=== PATIENT | male | born 1950 | race Caucasian/White ===

== ENCOUNTER → 2017-08-25 | Outpatient (CLI) | payer MEDICARE, OTHER | LOC: PT 07:54 | DX: Z01.818 Encounter for other preprocedural examination (principal); M25.562 Pain in left knee ==

== ENCOUNTER 2017-10-22 10:00 | Outpatient (RCR) | payer MEDICARE, OTHER | END 2017-10-22 10:30 | disposition home or self-care (01) | LOC: PT 10:00 | DX: Z47.89 Encounter for other orthopedic aftercare (principal) | CPT/HCPCS: G8978-GP; G8979-GP ==

== ENCOUNTER → 2019-09-08 | Outpatient (CLI) | payer MEDICARE, OTHER | LOC: RAD 07:10 | DX: M17.11 Unilateral primary osteoarthritis, right knee (principal) ==

== ENCOUNTER 2020-01-01 13:05 | Emergency (ER) | payer MEDICARE, OTHER ==
[2020-01-01] MEDS ORDERED: ULTRAM50 M1 PO (13:17)
[2020-01-01] MEDS ORDERED: SINGULAIR PO (13:18)
[2020-01-01] MEDS ORDERED: ATENOLOL25 MG PO (13:18)
[2020-01-01] MEDS ORDERED: NORCO 325 MG-7.1 TA1 PO (13:18)
[2020-01-01] MEDS ORDERED: CLARITIN LIQUI-10 MG PO (13:18)
[2020-01-01] MEDS ORDERED: PRAVASTATIN SOD80 MG PO (13:19)
[2020-01-01] MEDS ORDERED: MUCUS RELIEF600 MG PO (13:19)
[2020-01-01] MEDS ORDERED: IPRATROPIUM BROM3 M1 IH (13:20)
[2020-01-01] MEDS ORDERED: FLUTICASON0.05 MG/AC NS (13:20)
[2020-01-01] MEDS ORDERED: BUDESONIDE0.5 MG/2 M IH (13:20)
[2020-01-01 13:40] LABS: HEMATOCRIT 42.5 % (42.0-52.0); HEMOGLOBIN 14.2 g/dL (13.5-18.0); MEAN CELL VOLUME 91 fl (78-100); MEAN CORPUSCULAR HEMOGLOBIN 30 pg (27-31); MEAN CORPUSCULAR HGB CONC 33 g/dL (33-37); MEAN PLATELET VOLUME 8.8 fl (7.4-10.4); PLATELET COUNT 367 K/mm3 (130-400); RED BLOOD COUNT 4.68 M/mm3 (4.20-5.60); RED CELL DISTRIBUTION WIDTH 13.7 % (11.5-14.5); WHITE BLOOD COUNT 17.2 K/mm3 (4.8-10.8)
[2020-01-01 13:45] LABS: ALBUMIN 3.6 g/dL (3.4-4.8)
[2020-01-01 13:47] LABS: CALCIUM 9.7 mg/dL (8.3-10.5)
[2020-01-01 13:48] LABS: TOTAL PROTEIN 7.3 g/dL (6.2-8.1)
[2020-01-01 13:50] LABS: TOTAL BILIRUBIN 1.3 mg/dL (0.2-1.2)
[2020-01-01 13:55] LABS: LYMPHOCYTE 9 % (20-51); MONOCYTE 9 % (3-10); NEUTROPHILS 80 % (42-75)
[2020-01-01 15:56] VITALS: BP 148/82
[2020-01-01 21:31] LABS: URINE APPEARANCE CLOUDY; URINE BILIRUBIN NEGATIVE (NEGATIVE); URINE COLOR YELLOW; URINE GLUCOSE NEGATIVE (NEGATIVE); URINE KETONE NEGATIVE (NEGATIVE); URINE PROTEIN(semi-quant) 1+ mg/dL (NEGATIVE); URINE UROBILINOGEN NORMAL (NORMAL)
[2020-01-01 21:32] LABS: URINE BLOOD 50 ery/uL (NEGATIVE); URINE LEUKOCYTE ESTERASE NEGATIVE (NEGATIVE); URINE NITRATE NEGATIVE (NEGATIVE); URINE WBC 0-1 /hpf (0-3)
== END 2020-01-01 16:02 | disposition home or self-care (01) ==
LOC: ED 13:05
PROVIDERS: Family Medicine
DX: K59.00 Constipation, unspecified (principal); I10 Essential (primary) hypertension; E78.5 Hyperlipidemia, unspecified; J44.9 Chronic obstructive pulmonary disease, unspecified; Z90.49 Acquired absence of other specified parts of digestive tract; Z96.652 Presence of left artificial knee joint

== ENCOUNTER 2020-02-23 13:30 | Outpatient (RCR) | payer MEDICARE, OTHER ==
[~2020-02-23 13:30] MED LIST: ATENOLOL25 MG PO; BUDESONIDE0.5 MG/2 M IH; CLARITIN LIQUI-10 MG PO; FLUTICASON0.05 MG/AC NS; IPRATROPIUM BROM3 M1 IH; MUCUS RELIEF600 MG PO; NORCO 325 MG-7.1 TA1 PO; PRAVASTATIN SOD80 MG PO; SINGULAIR PO; ULTRAM50 M1 PO
== END 2020-02-23 14:00 | disposition still patient (30) ==
LOC: PT 13:30
DX: M17.12 Unilateral primary osteoarthritis, left knee (principal); Z96.652 Presence of left artificial knee joint

== ENCOUNTER → 2021-08-02 | Day surgery (SDC) | payer MEDICARE, OTHER | LOC: MSO 08:02 | DX: Z12.11 Encounter for screening for malignant neoplasm of colon (principal); D12.2 Benign neoplasm of ascending colon; K57.30 Diverticulosis of large intestine without perforation or abscess without bleeding; I10 Essential (primary) hypertension; J45.909 Unspecified asthma, uncomplicated; G47.33 Obstructive sleep apnea (adult) (pediatric); Z99.89 Dependence on other enabling machines and devices; Z87.891 Personal history of nicotine dependence; Z79.899 Other long term (current) drug therapy | CPT/HCPCS: 00811; J2704; J7120 ==

== ENCOUNTER 2022-10-22 07:45 | Outpatient (RCR) | payer MEDICARE, OTHER | END 2022-11-19 13:11 | disposition home or self-care (01) | LOC: PT 07:45 | DX: M17.11 Unilateral primary osteoarthritis, right knee (principal) ==

== ENCOUNTER → 2023-11-28 | Outpatient (CLI) | payer MEDICARE, OTHER ==
[2023-11-28 11:57] LABS: CALCIUM 9.3 mg/dL (8.3-10.5)
[2023-11-28 23:28] LABS: CREATININE OTHER SOURCE 101 mg/dL (47-110)
== END ==
LOC: LAB 11:26
PROVIDERS: Family Medicine
DX: I10 Essential (primary) hypertension (principal); E78.2 Mixed hyperlipidemia

== ENCOUNTER → 2024-05-26 | Outpatient (CLI) | payer MEDICARE ==
[2024-05-26 14:41] LABS: CALCIUM 9.7 mg/dL (8.3-10.5)
== END ==
LOC: LAB 14:17
PROVIDERS: Family Medicine
DX: I10 Essential (primary) hypertension (principal)

== ENCOUNTER → 2025-02-01 | Outpatient (CLI) | payer MEDICARE ==
[2025-02-01 07:42] LABS: CALCIUM 8.9 mg/dL (8.3-10.5)
[2025-02-01 20:24] LABS: CREATININE OTHER SOURCE 52 mg/dL (47-110)
== END ==
LOC: LAB 07:10
PROVIDERS: Family Medicine
DX: I10 Essential (primary) hypertension (principal); E78.2 Mixed hyperlipidemia